=== PATIENT | female | born 2000 | race Caucasian/White ===

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

== ENCOUNTER → 2024-07-27 | Outpatient (CLI) | payer OTHER, SELFPAY ==
--- NOTE | 2024-07-27 07:59 | US_ITS ---
PROCEDURE: BREAST LIMITED UNILATERAL REASON FOR EXAM: Left breast lump. COMPARISON: None. TECHNIQUE: Targeted bilateral breast ultrasound. FINDINGS: LEFT: Ultrasound targeted to the inferior medial aspect at the left breast. There is a 1.2 cm x 1.3 cm x 0.5 cm cyst at the 8 o'clock patient's breast at 1 cm from the nipple. US/Breast Limited Unilateral IMPRESSION: 1.2 cm x 1.3 cm x 0.5 cm cyst at the 8 o'clock position of the breast at 1 cm f rom the nipple. BI-RADS 2: BENIGN. RECOMMEND ANNUAL MAMMOGRAPHIC SCREENING. Reading Location: [place] [id number]
== END | disposition home or self-care (01) ==
PROVIDERS: PCP Family Medicine; Referring Provider Nurse Practitioner Primary Care; Visit Provider Nurse Practitioner Primary Care
DX: N63.20 Unspecified lump in the left breast, unspecified quadrant (principal)
CPT/HCPCS: 76642

== ENCOUNTER → 2025-06-05 | Outpatient (CLI) | payer OTHER, SELFPAY ==
--- NOTE | 2025-06-05 16:48 | RAD_ITS ---
PROCEDURE: CERV SPINE 2 OR 3 VIEWS 06/05/2025 REASON FOR EXAM: NECK PAIN, PARESTHESIAS TECHNIQUE: Procedure Code: RADSPCL Modality: DX Procedure: CERV SPINE 3 VIEWS COMPARISON: None. RAD/Cerv Spine 2 or 3 Views IMPRESSION: Straightening of the cervical spine is seen. No significant degenerative tavares e or disc narrowing is noted. No fracture, subluxation, or prevertebral soft tissue swelling is evident Reading Location: [place] [id number]
[2025-06-05 17:03] LABS: Hematocrit 41.5 % (37-47); Hemoglobin 13.6 g/dL (12.0-15.0); Mean Corp Hgb Conc 32.8 g/dL (32-36); Mean Corpuscular Volume 91.2 fL (81-99); Mean Platelet Vol. 11.0 fl (6.2-12.0); Platelet Count 233 K/mm3 (150-450); RBC Distribution Width CV 12.3 % (11.6-14.6); RBC Distribution Width SD 41.1 fl (35.1-43.9); Red Blood Count 4.55 M/mm3 (4.2-5.4); White Blood Count 6.5 K/mm3 (4.4-11.0)
[2025-06-05 17:43] LABS: AST(SGOT) 55 U/L (<=31); Alanine Aminotransfer ALT/SGPT 29 U/L (<=34); Albumin, Serum 4.7 g/dL (3.5-5.0); Alkaline Phosphatase 80 U/L (35-104); Anion Gap 10 (5-15); BUN 10 mg/dL (4-19); BUN/Creat Ratio 14.0 RATIO (10-20); Calcium,Total 9.5 mg/dL (7.6-11.0); Carbon Dioxide 26.3 mmol/L (21.0-32.0); Chloride 102 mmol/L (98-108); Globulin 2.7 g/dL (2.2-4.2); Glucose 82 mg/dL (70-99); Potassium 3.8 mmol/L (3.3-5.1); Vitamin D,25 Hydroxy 17.7 ng/mL (30-100)
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
[2025-06-07 13:37] LABS: Vitamin B12 574 pg/mL (180-914)
== END | disposition home or self-care (01) ==
LOC: RAD 16:24
PROVIDERS: PCP Family Medicine; Referring Provider Student in an Organized Health Care Education/Training Program; Visit Provider Student in an Organized Health Care Education/Training Program
DX: M54.2 Cervicalgia (principal); R20.2 Paresthesia of skin
CPT/HCPCS: 36415; 72040; 80053; 82306; 82607; 84439; 84443; 85027